=== PATIENT | female | born 1950 | race Caucasian/White ===

== ENCOUNTER 2022-07-03 11:26 | Inpatient (IN) ==
[2022-07-03 12:18] LABS: Hematocrit (blood only) 35.1 % (37.0-47.0); Mean Corpuscular Hemoglobin 31.4 pg (25.0-34.0); Mean Corpuscular Hgb Conc 34.2 g/dL (32.0-36.0); Mean Corpuscular Volume 91.9 fL (80.0-100.0); Mean Platelet Volume 12.1 fL (9.4-12.4); Platelet Count 149 K/uL (130-400); RDW Coefficient of Variation 11.9 % (11.5-14.5); RDW Standard Deviation 40.5 fL (36.4-46.3); Red Blood Count 3.82 M/uL (4.20-5.40); White Blood Count 6.35 K/ul (4.8-10.8)
[2022-07-03 12:36] LABS: Albumin Globulin Ratio 1.2 (0.9-2); Albumin Level 3.3 gm/dl (3.4-5.0); BUN Creatinine Ratio 21.7 (10-20); Bilirubin,Total 0.5 mg/dl (0.2-1.0); Calcium 8.9 mg/dl (8.6-10.3); Creatinine Clr Calc Pharmacy 55.2 ml/min; Est GFR (Non-African American) 53.5 ml/min; Globulin 2.7 gm/dl (2.5-4.0); Potassium 4.5 mmol/L (3.5-5.1); Troponin I High Sensitivity 6.7 pg/ml (0-14)
[2022-07-03 12:53] LABS: Partial Thromboplastin Time 27.9 Seconds (21.0-31.0); Prothrombin Time 10.6 Seconds (9.0-12.0)
--- NOTE | 2022-07-03 15:14 | Emergency Department Note ---
Impression & Plan Acute hyperglycemia ADMIT ED Provider Note HPI: The patient is a 71-year-old female with history of insulin-dependent diabetes, presents emergency department with a chief complaint of mid abdominal pain as well as nausea and vomiting and diarrhea that started earlier today. Patient states that she has had symptoms of generalized weakness throughout the week, she was seen at an outside hospital emergency room on Thursday and diagnosed with a urinary tract infection and placed on Macrobid. Patient states that she did have some nausea at that time that is worsened. Patient states today she had an episode of dark-colored emesis as well as an episode of dark-colored stools and therefore came to the ED to be assessed. Patient states she has some discomfort in her mid abdomen. On arrival to the ED the patient is otherwise hemodynamically stable, she is in no acute distress on my initial assessment. ROS: - Per HPI *Outpatient medications and allergy history reviewed. *Pertinent external medical records reviewed. PE: General: Alert HEENT: Normocephalic, trachea midline Eyes: Extraocular eye movement is intact, no scleral erythema Pulmonary: Clear to auscultation bilaterally, no wheezing Cardio: Regular rate and rhythm GI: Abdomen is soft to palpation, there is mild tenderness over the mid abdomen to palpation without guarding or rigidity : No suprapubic tenderness MSK: No evidence of trauma or malformation of the extremities, no edema Skin: No evidence of rash Neuro: Alert, no focal deficits Psychiatric: Cooperative library monitor: (As interpreted by myself): - An order was placed for continuous cardiac monitoring - Patient was noted to be in sinus rhythm with a rate of 80 EKG: (As interpreted by myself): Rate: 79 Rhythm: Normal sinus rhythm Intervals: Within normal limits ST changes: No ST elevation Time: 1140 Interventions provided in ED: -IV ceftriaxone, IV fluid bolus Differential Diagnosis: Acute upper GI tract hemorrhage, lower GI bleed, small bowel obstruction, acute cholecystitis, acute appendicitis, acute diverticulitis flare, ulcerative colitis/inflammatory bowel disease, diabetic ketoacidosis, urinary tract infection, pyelonephritis, amongst other potential pathologies. Medical Decision Making: Patient presented to the emergency department with some symptoms of nausea and vomiting, states she had some dark stool and dark emesis earlier today. Patient states that she has recently been treated for urinary tract infection with Macrobid for which she was seen at an ED earlier this week. On arrival here to the ED the patient is in no acute distress, she complains of generalized weakne ss as well as nausea. IV was established and lab work obtained, patient was placed on monitoring and evaluation advisor, lab work shows no leukocytosis, hemoglobin is stable, platelet count within normal limits, CMP shows very mild evidence of diabetic ketoacidosis with blood glucose of 422, slight anion gap elevation at 12, bicarb is borderline low at 20. Patient does complain of nausea but overall appears very nontoxic on my exam. Patient was given IV fluid resuscitation for her hyperglycemia with plan for close reassessment on the hospitalist service following admission. Urinalysis does not show any convincing evidence of infection however CT imaging was obtained and does show concern for possible a sending urinary tract infection on the left side and possible pyelonephritis. Given that the patient has recently been on antibiotics for urinary tract infection blood cultures were ordered and patient was given a dose of ceftriaxone. On reassessment patient states that she would prefer admission as opposed to discharge given her generalized weakness and lab abnormalities that were discussed with the patient. I think this is reasonable. We will hold on insulin drip at this time and see how she responds to fluid resuscitation given that her bicarb is just borderline low at 20. Case was discussed with the on-call midlevel provider for [facility] Hospitalist service, Rain Carrizales, and patient was placed for admission in stable condition for further care. [facility] Disposition discussion held by myself with: Patient Diagnosis: 1. Hyperglycemia, acute 2. Metabolic acidosis 3. Pyelonephritis on CT 4. Hyponatremia, mild 5. Elevated procalcitonin Disposition: Admission Jaron Moyer DO Emergency Medicine Past Med/Surg History Medical History Depression Diabetes mellitus, type II Dyslipidemia History of eye cancer HTN (hypertension) Surgical History H/O section H/O: hysterectomy History of appendectomy Family History Other Breast cancer Diabetes Lung cancer Social History (Updated 07/03/22 @ 17:41 by Lorelei Iniguez PA-C) Smoking Status: Never smoker Hx Alcohol Use: No Hx Substance Use: No Preferred Language: [place] Feels Safe at Home: Yes Allergies Allergies Allergy/AdvReac Type Severity Reaction Status Date / Time No Known Allergies Allergy Verified 07/03/22 15:31 Home Meds Home Medications Medication Instructions Recorded Confirmed albuterol sulfate 90 mcg/actuation 2 inh inhalation Q4H PRN Shortness 07/03/22 0 07/03/22 aerosol inhaler Of Breath Or Wheezing aspirin 81 mg tablet,delayed 81 mg PO DAILY 07/03/22 07/03/22 release calcium carbonate 600 mg-vitamin 1 cap PO DAILY 07/03/22 07/03/22 D3 5 mcg (200 unit) capsule (Calcium 600 + D(3)) cyanocobalamin (vitamin B-12) 500 500 mcg PO DAILY 07/03/22 07/03/22 mcg tablet (Vitamin B-12) insulin aspart U-100 100 unit/mL 0 sliding scale dose subcut TIDM 07/03/22 07/03/22 (3 mL) subcutaneous pen (Novolog FlexPen U-100 Insulin aspart) insulin glargine 100 unit/mL (3 24 unit subcut HS 07/03/22 07/03/22 mL) subcutaneous pen (Basaglar KwikPen U-100 Insulin) losartan 100 mg tablet 100 mg PO DAILY 07/03/22 07/03/22 nitrofurantoin 100 mg PO BID 07/03/22 07/03/22 monohydrate/macrocrystals 100 mg capsule ondansetron 4 mg disintegrating 4 mg translingual Q8H PRN 07/03/22 07/03/22 tablet NAUSEA/VOMITING simvastatin 20 mg tablet 20 mg PO HS 07/03/22 07/03/22 Results & Data (ED) Vital Signs Vital Signs - 24 hr 07/03/22 11:32 07/03/22 15:07 07/03/22 15:15 Temperature 37 C Temperature Source Temporal Artery Scan Pulse Rate - Lying 80 Pulse Rate - Sitting 79 Pulse Rate - Standing 86 Pulse Rate 82 78 Pulse Rate [Apical] Pulse Rhythm Regular Regular Pulse Rhythm [Apical] Pulse Strength Normal Pulse Strength [Apical] Respiratory Rate 20 16 Respiratory Effort / Characteristics Non-Labored Spontaneous Respiratory Depth Normal Respiratory Pattern Regular Blood Pressure - Lying 149/64 H Blood Pressure - Sitting 164/70 H Blood Pressure- Standing 145/75 H Blood Pressure 128/77 Blood Pressure [Right Arm] Blood Pressure Mean 94 Blood Pressure Mean [Right Arm] Blood Pressure Position Sitting Blood Pressure Position [Right Arm] Pulse Oximetry 97 99 Oxygen Delivery Method Room Air Room Air Sepsis Recent Fever Within 48 Hours No Sepsis New/Unexplained Change in Mental Status No Sepsis Action Taken by Nursing No Action Required 07/03/22 15:16 Temperature Temperature Source Pulse Rate - Lying Pulse Rate - Sitting Pulse Rate - Standing Pulse Rate Pulse Rate [Apical] 76 Pulse Rhythm Pulse Rhythm [Apical] Regular Pulse Strength Pulse Strength [Apical] Normal Respiratory Rate 16 Respiratory Effort / Characteristics Non-Labored Spontaneous Respiratory Depth Normal Respiratory Pattern Regular Blood Pressure - Lying Blood Pressure - Sitting Blood Pressure- Standing Blood Pressure Blood Pressure [Right Arm] 144/72 H Blood Pressure Mean Blood Pressure Mean [Right Arm] 96 Blood Pressure Position Blood Pressure Position [Right Arm] Semi-fowlers Pulse Oximetry 97 Oxygen Delivery Method Room Air Sepsis Recent Fever Within 48 Hours Sepsis New/Unexplained Change in Mental Status Sepsis Action Taken by Nursing Laboratory Data 07/03/22 11:39 07/03/22 11:39 Lab Results 07/03/22 07/03/22 07/03/22 Range/Units 11:39 11:39 11:39 WBC 6.35 (4.8-10.8) K/ul RBC 3.82 L (4.20-5.40) M/uL Hgb 12.0 (12.0-16.0) g/dl Hct 35.1 L (37.0-47.0) % MCV 91.9 (80.0-100.0) fL MCH 31.4 (25.0-34.0) pg MCHC 34.2 (32.0-36.0) g/dL RDW Std Deviation 40.5 (36.4-46.3) fL RDW Coeff of Dav 11.9 (11.5-14.5) % Plt Count 149 (130-400) K/uL MPV 12.1 (9.4-12.4) fL PT 10.6 (9.0-12.0) Seconds INR 1.0 (0.9-1.1) APTT 27.9 (21.0-31.0) Seconds PTT Ratio 1.0 Sodium 131 L (136-145) mmol/L Potassium 4.5 (3.5-5.1) mmol/L Chloride 99 (98-107) mmol/L Carbon Dioxide 20 L (21-32) mmol/L Anion Gap 12 H (3-11) BUN 23 (6-23) mg/dl Creatinine 1.06 (0.6-1.2) mg/dl Est Cr Clr Drug Dosing 55.2 ml/min Est GFR ( Amer) 62.0 ml/min Est GFR (Non-Af Amer) 53.5 ml/min BUN/Creatinine Ratio 21.7 H (10-20) Glucose 422 H* (70-99(Fasting)) mg/dl Calcium 8.9 (8.6-10.3) mg/dl Total Bilirubin 0.5 (0.2-1.0) mg/dl AST 16 (13-39) U/L ALT 13 (7-52) U/L Alkaline Phosphatase 59 (34-104) U/L Troponin I High Sens 6.7 (0-14) pg/ml Total Protein 6.0 (6.0-8.3) gm/dl Albumin 3.3 L (3.4-5.0) gm/dl Globulin 2.7 (2.5-4.0) gm/dl Albumin/Globulin Ratio 1.2 (0.9-2) Procalcitonin (0-0.5) ng/ml Urine Color Urine Appearance (Clear) Urine pH (4.5-7.5) Ur Specific [place] (1.000-1.030) Urine Protein (Negative) Urine Glucose (UA) (Negative) Urine Ketones (Negative) Urine Blood (Negative) Urine Nitrite (Negative) Urine Bilirubin (Negative) Urine Urobilinogen (Negative) Ur Leukocyte Esterase (Negative) Urine WBC (Auto) (0-5) /hpf Urine RBC (Auto) (0-4) /hpf U Hyaline Cast (Auto) (0-5) /lpf U Epithel Cells (Auto) (0-5) /lpf Urine Bacteria (Auto) (Negative) SARS-CoV-2, RNA, NAAT (NEGATIVE) Blood Type Antibody Screen 07/03/22 07/03/22 07/03/22 Range/Units 12:18 17:06 17:09 WBC (4.8-10.8) K/ul RBC (4.20-5.40) M/uL Hgb (12.0-16.0) g/dl Hct (37.0-47.0) % MCV (80.0-100.0) fL MCH (25.0-34.0) pg MCHC (32.0-36.0) g/dL RDW Std Deviation (36.4-46.3) fL RDW Coeff of Dav (11.5-14.5) % Plt Count (130-400) K/uL MPV (9.4-12.4) fL PT (9.0-12.0) Seconds INR (0.9-1.1) APTT (21.0-31.0) Seconds PTT Ratio Sodium (136-145) mmol/L Potassium (3.5-5.1) mmol/L Chloride (98-107) mmol/L Carbon Dioxide (21-32) mmol/L Anion Gap (3-11) BUN (6-23) mg/dl Creatinine (0.6-1.2) mg/dl Est Cr Clr Drug Dosing ml/min Est GFR ( Amer) ml/min Est GFR (Non-Af Amer) ml/min BUN/Creatinine Ratio (10-20) Glucose (70-99(Fasting)) mg/dl Calcium (8.6-10.3) mg/dl Total Bilirubin (0.2-1.0) mg/dl AST (13-39) U/L ALT (7-52) U/L Alkaline Phosphatase (34-104) U/L Troponin I High Sens (0-14) pg/ml Total Protein (6.0-8.3) gm/dl Albumin (3.4-5.0) gm/dl Globulin (2.5-4.0) gm/dl Albumin/Globulin Ratio (0.9-2) Procalcitonin 110.71 H (0-0.5) ng/ml Urine Color Yellow Urine Appearance Cloudy A (Clear) Urine pH 5.5 (4.5-7.5) Ur Specific [place] > 1.045 H (1.000-1.030) Urine Protein Trace H (Negative) Urine Glucose (UA) 3+ H (Negative) Urine Ketones 4+ H (Negative) Urine Blood 3+ H (Negative) Urine Nitrite Negative (Negative) Urine Bilirubin Negative (Negative) Urine Urobilinogen Negative (Negative) Ur Leukocyte Esterase Negative (Negative) Urine WBC (Auto) 1-5 (0-5) /hpf Urine RBC (Auto) 10-30 H (0-4) /hpf U Hyaline Cast (Auto) 1-5 (0-5) /lpf U Epithel Cells (Auto) 5-10 H (0-5) /lpf Urine Bacteria (Auto) Negative (Negative) SARS-CoV-2, RNA, NAAT (NEGATIVE) Blood Type AB Positive Antibody Screen NEGATIVE 07/03/22 Range/Units 17:45 WBC (4.8-10.8) K/ul RBC (4.20-5.40) M/uL Hgb (12.0-16.0) g/dl Hct (37.0-47.0) % MCV (80.0-100.0) fL MCH (25.0-34.0) pg MCHC (32.0-36.0) g/dL RDW Std Deviation (36.4-46.3) fL RDW Coeff of Dav (11.5-14.5) % Plt Count (130-400) K/uL MPV (9.4-12.4) fL PT (9.0-12.0) Seconds INR (0.9-1.1) APTT (21.0-31.0) Seconds PTT Ratio Sodium (136-145) mmol/L Potassium (3.5-5.1) mmol/L Chloride (98-107) mmol/L Carbon Dioxide (21-32) mmol/L Anion Gap (3-11) BUN (6-23) mg/dl Creatinine (0.6-1.2) mg/dl Est Cr Clr Drug Dosing ml/min Est GFR ( Amer) ml/min Est GFR (Non-Af Amer) ml/min BUN/Creatinine Ratio (10-20) Glucose (70-99(Fasting)) mg/dl Calcium (8.6-10.3) mg/dl Total Bilirubin (0.2-1.0) mg/dl AST (13-39) U/L ALT (7-52) U/L Alkaline Phosphatase (34-104) U/L Troponin I High Sens (0-14) pg/ml Total Protein (6.0-8.3) gm/dl Albumin (3.4-5.0) gm/dl Globulin (2.5-4.0) gm/dl Albumin/Globulin Ratio (0.9-2) Procalcitonin (0-0.5) ng/ml Urine Color Urine Appearance (Clear) Urine pH (4.5-7.5) Ur Specific [place] (1.000-1.030) Urine Protein (Negative) Urine Glucose (UA) (Negative) Urine Ketones (Negative) Urine Blood (Negative) Urine Nitrite (Negative) Urine Bilirubin (Negative) Urine Urobilinogen (Negative) Ur Leukocyte Esterase (Negative) Urine WBC (Auto) (0-5) /hpf Urine RBC (Auto) (0-4) /hpf U Hyaline Cast (Auto) (0-5) /lpf U Epithel Cells (Auto) (0-5) /lpf Urine Bacteria (Auto) (Negative) SARS-CoV-2, RNA, NAAT NEGATIVE (NEGATIVE) Blood Type Antibody Screen Administered Medications Discontinued Medications Sodium Chloride (Nss 1000ml) 1,000 mls @ 999 mls/hr IV .Q1H1M ONE Stop: 07/03/22 17:52 Last Admin: 07/03/22 17:20 Dose: 999 mls/hr Documented By: ROVING CHANGER Ceftriaxone Sodium 1,000 mg/ (Dextrose) 50 mls @ 100 mls/hr IV NOW STA Stop: 07/03/22 17:21 Last Admin: 07/03/22 17:22 Dose: 100 mls/hr Documented By: ROVING CHANGER Ioversol (Optiray 320 100ml) 83 ml IV ONCE ONE Stop: 07/03/22 15:36 Last Admin: 07/03/22 15:35 Dose: 83 ml Documented By: POPPY Imaging Data Radiologist's Impression: Abdomen/Pelvis CT 07/03/22 15:12 CT SCAN OF THE ABDOMEN AND PELVIS WITH IV CONTRAST CLINICAL HISTORY: Mid abdominal pain. Nausea and vomiting. Diarrhea. COMPARISON STUDY: No priors. TECHNIQUE: Following the IV administration of 83 cc of Optiray 320, CT scan of the abdomen and pelvis is performed from the lung bases to the proximal femora. Images are reviewed in the axial, sagittal, and coronal planes. IV contrast was administered without complication. A dose lowering technique was utilized adhering to the principles of ALARA. CT DOSE: 564.72 mGy.cm FINDINGS: Lung bases: The heart is normal in size and without pericardial effusion. The coronary arteries are densely calcified. There is elevation of the right hemidiaphragm with mild bibasilar atelectasis. The lung bases are otherwise clear. There is a small hiatal hernia. The distal esophagus is thick-walled. Liver: The contrast-enhanced liver is normal in size, contour, and attenuation. There is no intrahepatic biliary ductal dilatation. The hepatic veins and portal veins are patent. Scattered subcentimeter hepatic hypodensities likely represent cysts but are too small for definitive characterization. Gallbladder: Unremarkable. Spleen: Normal in size and attenuation. Pancreas: Moderately atrophic and grossly unremarkable. Adrenal glands: Unremarkable. Kidneys: The contrast enhanced kidneys demonstrate cortical atrophy and are without hydronephrosis. Enhancement of the left kidney is slightly heterogeneous as compared to the right. Urothelial thickening and enhancement is seen within the left renal pelvis and there is significant left-sided perinephric stranding. Bilateral renal cysts measuring up to 3.4 cm. Abdominal vasculature: The abdominal aorta is normal in course and caliber. Bowel: There is moderate colonic diverticulosis as well as diverticulosis of the distal small bowel. There is no CT evidence of acute diverticulitis. No bowel obstruction is seen. Residual enteric contrast is suggested in the colon. The cecum is located in the right upper quadrant. A duodenal diverticulum is incidentally noted. The appendix is not visualized. Peritoneum: There is no intraperitoneal free air or abdominal ascites. Lymphadenopathy: None. Pelvic viscera: The bladder is decompressed. The wall appears thickened and there is surrounding inflammation. The uterus is surgically absent. No adnexal lesion is seen. Skeletal structures: The skeletal structures are osteopenic. There is mild lumbosacral spondylosis. No lytic or blastic lesions are seen. IMPRESSION: 1. Findings suggest cystitis. Correlate with clinical findings and urinalysis. 2. There is urothelial thickening and enhancement in the left renal pelvis with significant left-sided perinephric stranding. Ascending infection/pyelonephritis is favored. Again, correlate with clinical findings and urinalysis. 3. Diverticulosis of the colon and distal small bowel without CT evidence of acute diverticulitis. 4. The esophagus appears circumferentially thick walled. Correlate clinically from some esophagitis. This can be further assessed with endoscopy if clinically warranted. 5. Additional findings as above. ACT 112: Negative or not required by law. Electronically signed by: Hung Patrick M.D. 07/03/2022 4:01 PM Discharge Plan Visit Data Chief Complaint: GI Assessment Stated Complaint: DIARRHEA (BLACK), VOMITING BILE, UTI ED Provider: Jaron Moyer Discharge Problem: Acute hyperglycemia Forms Stand Alone Forms: [facility] Prescriptions Prescriptions: No Action aspirin 81 mg Tablet,Delayed Release (Dr/Ec) 81 mg PO DAILY cyanocobalamin (vitamin B-12) [Vitamin B-12] 500 mcg Tablet 500 mcg PO DAILY simvastatin 20 mg tablet 20 mg PO HS ondansetron 4 mg tablet,disintegrating 4 mg translingual Q8H PRN (Reason: NAUSEA/VOMITING) losartan 100 mg tablet 100 mg PO DAILY insulin aspart U-100 [Novolog FlexPen U-100 Insulin] 100 unit/mL (3 mL) insulin pen 0 sliding scale dose SUBCUT TIDM nitrofurantoin monohyd/m-cryst 100 mg capsule 100 mg PO BID Rx Instructions: STARTED 07/01/22 FOR 7 DAYS Calcium 600 + D(3) 600 mg-5 mcg (200 unit) Capsule 1 cap PO DAILY insulin glargine [Basaglar KwikPen U-100 Insulin] 100 unit/mL (3 mL) insulin pen 24 unit SUBCUT HS albuterol sulfate 90 mcg/actuation HFA aerosol inhaler 2 inh INHALATION Q4H PRN (Reason: Shortness Of Breath Or Wheezing) Referrals Referrals: Ab Berger [Non-Staff] -
[2022-07-03] MEDS ORDERED: OPTIRAY 320 100ml IV ONE (15:35)
--- NOTE | 2022-07-03 16:02 | CT Scan Report ---
CT SCAN OF THE ABDOMEN AND PELVIS WITH IV CONTRAST CLINICAL HISTORY: Mid abdominal pain. Nausea and vomiting. Diarrhea. COMPARISON STUDY: No priors. TECHNIQUE: Following the IV administration of 83 cc of Optiray 320, CT scan of the abdomen and pelvi s is performed from the lung bases to the proximal femora. Images are reviewed in the axial, sagittal , and coronal planes. IV contrast was administered without complication. A dose lowering technique wa s utilized adhering to the principles of ALARA. CT DOSE: 564.72 mGy.cm FINDINGS: Lung bases: The heart is normal in size and without pericardial effusion. The coronary arteries are d ensely calcified. There is elevation of the right hemidiaphragm with mild bibasilar atelectasis. The lung bases are otherwise clear. There is a small hiatal hernia. The distal esophagus is thick-walled. Liver: The contrast-enhanced liver is normal in size, contour, and attenuation. There is no intrahepa tic biliary ductal dilatation. The hepatic veins and portal veins are patent. Scattered subcentimeter hepatic hypodensities likely represent cysts but are too small for definitive characterization. Gallbladder: Unremarkable. Spleen: Normal in size and attenuation. Pancreas: Moderately atrophic and grossly unremarkable. Adrenal glands: Unremarkable. Kidneys: The contrast enhanced kidneys demonstrate cortical atrophy and are without hydronephrosis. E nhancement of the left kidney is slightly heterogeneous as compared to the right. Urothelial thickeni ng and enhancement is seen within the left renal pelvis and there is significant left-sided perinephr ic stranding. Bilateral renal cysts measuring up to 3.4 cm. Abdominal vasculature: The abdominal aorta is normal in course and caliber. Bowel: There is moderate colonic diverticulosis as well as diverticulosis of the distal small bowel. There is no CT evidence of acute diverticulitis. No bowel obstruction is seen. Residual enteric contr ast is suggested in the colon. The cecum is located in the right upper quadrant. A duodenal diverticu lum is incidentally noted. The appendix is not visualized. Peritoneum: There is no intraperitoneal free air or abdominal ascites. Lymphadenopathy: None. Pelvic viscera: The bladder is decompressed. The wall appears thickened and there is surrounding infl ammation. The uterus is surgically absent. No adnexal lesion is seen. Skeletal structures: The skeletal structures are osteopenic. There is mild lumbosacral spondylosis. N o lytic or blastic lesions are seen. IMPRESSION: 1. Findings suggest cystitis. Correlate with clinical findings and urinalysis. 2. There is urothelial thickening and enhancement in the left renal pelvis with significant left-side d perinephric stranding. Ascending infection/pyelonephritis is favored. Again, correlate with clinica l findings and urinalysis. 3. Diverticulosis of the colon and distal small bowel without CT evidence of acute diverticulitis. 4. The esophagus appears circumferentially thick walled. Correlate clinically from some esophagitis. This can be further assessed with endoscopy if clinically warranted. 5. Additional findings as above. ACT 112: Negative or not required by law. Electronically signed by: Hung Patrick M.D. 07/03/2022 4:01 PM
[2022-07-03] MEDS ORDERED: SODIUM CHLORIDE 0.9% 1000ML 1,000 ML IV ONE ×2 (16:52→18:31)
[2022-07-03] MEDS ORDERED: cefTRIAXone SODIUM 1,000 MG in DEXTROSE 5% AD-VAN 50 ML IV STA ×2 (16:52→17:23)
--- NOTE | 2022-07-03 17:30 | History & Physical Report ---
Date of Service July 03, 2022 Assessment & Plan (1) Complicated UTI (urinary tract infection): Plan: This is a 71-year-old female with PMH of type 2 diabetes, dyslipidemia, hypertension, depression and other medical problems listed below who presents with abdominal pain as well as nausea 1 episode of vomiting earlier today was found to have complicated UTI. Diagnosed with UTI 3 days ago, has been taking Macrobid but symptoms have worsened Afebrile, no leukocytosis CT abd/pelvis with findings suggestive of cystitis with urothelial thickening and enhancement of left renal pelvis with significant left-sided perinephric stranding favoring a sending infection/pyelonephritis Started on Rocephin in ED, plan to continue Antiemetics PRN Follow urine culture (2) Hematemesis: (3) Nausea and vomiting: Plan: Endorsing episode of hematemesis and black stool x 1 earlier today, no recurrence Initial hgb 12 this morning - repeat H&H ordered for this evening Holding aspirin for now CT abd/pelvis with circumferentially thick walled esophagus. Correlate clinically from some esophagitis Procal elevated at 110. Will add lactate Describes abd discomfort as a fullness, feeling like she needs to belch, noted mainly in epigastric region Routine GI consult for further evaluation, possible EGD NPO after midnight (4) Hyperglycemia: (5) Metabolic acidosis: (6) Diabetes mellitus, type II: Plan: A1c 7.5 last month Glucose 422 this morning, is being given 1 L NSS now. Repeat BSG ordered Anion gap mildly elevated at 12 Keep NPO for now until BSG downtrending, basal bolus insulin regimen ordered Glycemic consult placed and discussed over phone BSG AC HS (7) HTN (hypertension): Plan: Continue losartan (8) Dyslipidemia: Plan: Continue statin (9) Depression: Plan: No longer taking Prozac DVT Ppx: SCDs in setting of possible GI bleed Code status: FULL PCP: [facility] Dispo: Admitted to PCU Patient seen in collaboration with Dr. Gustafson. Please see addendum. I spent a total of 75 minutes coordinating, documenting, and providing care for this patient excluding time spent in the performance of separately billed services. History of Present Illness Chief Complaint: abd pain, weakness Primary Care Provider: Henri Hart MD This is a 71-year-old female with PMH of type 2 diabetes, dyslipidemia, hypertension, depression and other medical problems listed below who presents with abdominal pain as well as nausea 1 episode of vomiting earlier today. Patient has had diffuse abdominal discomfort and generalized weakness for the past week and was seen at [place] [facility] on Thursday and diagnosed with a UTI. Was discharged home on Macrobid. Denies any dysuria but has been having incomplete emptying and frequent urination. Has had nausea all week but that has worsened over the past few days despite antibiotic. Earlier today, patient had 1 episode of dark-colored emesis she states was black as well as 1 episode of black- colored diarrhea. Came into the ER for further evaluation. Has not had a recurrent episode of dark vomit or stool since present in the ED. has abdominal discomfort that has been present all week and describes almost more of a full feeling like she needs to burp and not actual pain. Has had generalized weakness and lightheadedness this week as well. Denies any fever, chills, chest pain, shortness of breath or constipation. No recent medication changes other than the Macrobid antibiotic over the past few days. Has had decreased appetite but states she has been taking Lantus as prescribed. Allergies Allergy/AdvReac Type Severity Reaction Status Date / Time No Known Allergies Allergy Verified 07/03/22 15:31 Home Medications Medication Instructions Recorded Confirmed Type albuterol sulfate 90 mcg/actuation 2 inh inhalation Q4H PRN Shortness 07/03/22 07/03/22 History aerosol inhaler Of Breath Or Wheezing aspirin 81 mg tablet,delayed 81 mg PO DAILY 07/03/22 07/03/22 History release calcium carbonate 600 mg-vitamin 1 cap PO DAILY 07/03/22 07/03/22 History D3 5 mcg (200 unit) capsule (Calcium 600 + D(3)) cyanocobalamin (vitamin B-12) 500 500 mcg PO DAILY 07/03/22 07/03/22 History mcg tablet (Vitamin B-12) insulin aspart U-100 100 unit/mL 0 sliding scale dose subcut TIDM 07/03/22 07/03/22 History (3 mL) subcutaneous pen (Novolog FlexPen U-100 Insulin aspart) insulin glargine 100 unit/mL (3 24 unit subcut HS 07/03/22 07/03/22 History mL) subcutaneous pen (Basaglar KwikPen U-100 Insulin) losartan 100 mg tablet 100 mg PO DAILY 07/03/22 07/03/22 History nitrofurantoin 100 mg PO BID 07/03/22 07/03/22 History monohydrate/macrocrystals 100 mg capsule ondansetron 4 mg disintegrating 4 mg translingual Q8H PRN 07/03/22 07/03/22 History tablet NAUSEA/VOMITING simvastatin 20 mg tablet 20 mg PO HS 07/03/22 07/03/22 History Past Med/Surg History Medical History Depression Diabetes mellitus, type II Dyslipidemia History of eye cancer HTN (hypertension) Surgical History H/O section H/O: hysterectomy History of appendectomy Family History Other Breast cancer Diabetes Lung cancer Social History (Updated 07/03/22 @ 17:41 by Lorelei Iniguez PA-C) Smoking Status: Never smoker Hx Alcohol Use: No Hx Substance Use: No Preferred Language: Surinamese Feels Safe at Home: Yes Review of Systems Review of Systems: At least ten systems reviewed and negative except as noted in the HPI. Physical Exam Physical Exam: General Appearance: WD/WN, vitals as above, NAD, sitting up in bed, pleasant, conversing easily Head: normocephalic, atraumatic Eyes: normal inspection, PERRL, conjunctivae normal, anicteric sclerae ENT: external ear and nose normal, oropharynx normal Neck: normal visual inspection, trachea midline, no thyromegaly Respiratory: normal respiratory effort, lungs clear to auscultation, no wheeze, rales, rhonchi. No accessory muscle use Cardiovascular: regular rate, rhythm, no murmur, normal peripheral pulses, no BLE edema. Vessels: no JVD Chest: normal inspection of chest Abdomen/GI: normal bowel sounds, soft with mild TTP in epigastrium, no guarding, no hepatosplenomegaly : No flank pain or CVA TTP Extremities/Musculoskeletal: no cyanosis or clubbing, extremities motor strength 5/5 Neurologic: PERRL, EOMI, accommodation nl, no face palsy, no dysarthria, CN's II-XI intact bilaterally and moves all extremities Psychiatric: A+Ox3, euthymic affect Skin: no rashes, normal color, warm/dry Results & Data Results & Data Vital Signs (Past 12 Hours) Vital Signs Temp Pulse Pulse Resp BP BP Pulse Ox 07/03/22 15:16 76 16 144/72 H 97 07/03/22 15:15 78 16 99 07/03/22 11:32 37 C 82 20 128/77 97 O2 Del Method 07/03/22 15:16 Room Air 07/03/22 15:15 Room Air 07/03/22 11:32 Room Air Laboratory Results Short CBC 07/03/22 Range/Units 11:39 WBC 6.35 (4.8-10.8) K/ul Hgb 12.0 (12.0-16.0) g/dl Hct 35.1 L (37.0-47.0) % Plt Count 149 (130-400) K/uL BMP 07/03/22 11:39 Sodium 131 L Potassium 4.5 Chloride 99 Carbon Dioxide 20 L BUN 23 Creatinine 1.06 Glucose 422 H* Calcium 8.9 Liver Function 07/03/22 Range/Units 11:39 Total Bilirubin 0.5 (0.2-1.0) mg/dl AST 16 (13-39) U/L ALT 13 (7-52) U/L Alkaline Phosphatase 59 (34-104) U/L Albumin 3.3 L (3.4-5.0) gm/dl Diagnostic Findings Abdomen/Pelvis CT 07/03/22 15:12 CT SCAN OF THE ABDOMEN AND PELVIS WITH IV CONTRAST CLINICAL HISTORY: Mid abdominal pain. Nausea and vomiting. Diarrhea. COMPARISON STUDY: No priors. TECHNIQUE: Following the IV administration of 83 cc of Optiray 320, CT scan of the abdomen and pelvis is performed from the lung bases to the proximal femora. Images are reviewed in the axial, sagittal, and coronal planes. IV contrast was administered without complication. A dose lowering technique was utilized adhering to the principles of ALARA. CT DOSE: 564.72 mGy.cm FINDINGS: Lung bases: The heart is normal in size and without pericardial effusion. The coronary arteries are densely calcified. There is elevation of the right hemidiaphragm with mild bibasilar atelectasis. The lung bases are otherwise clear. There is a small hiatal hernia. The distal esophagus is thick-walled. Liver: The contrast-enhanced liver is normal in size, contour, and attenuation. There is no intrahepatic biliary ductal dilatation. The hepatic veins and portal veins are patent. Scattered subcentimeter hepatic hypodensities likely represent cysts but are too small for definitive characterization. Gallbladder: Unremarkable. Spleen: Normal in size and attenuation. Pancreas: Moderately atrophic and grossly unremarkable. Adrenal glands: Unremarkable. Kidneys: The contrast enhanced kidneys demonstrate cortical atrophy and are wi thout hydronephrosis. Enhancement of the left kidney is slightly heterogeneous as compared to the right. Urothelial thickening and enhancement is seen within the left renal pelvis and there is significant left-sided perinephric stranding. Bilateral renal cysts measuring up to 3.4 cm. Abdominal vasculature: The abdominal aorta is normal in course and caliber. Bowel: There is moderate colonic diverticulosis as well as diverticulosis of the distal small bowel. There is no CT evidence of acute diverticulitis. No bowel obstruction is seen. Residual enteric contrast is suggested in the colon. The cecum is located in the right upper quadrant. A duodenal diverticulum is incidentally noted. The appendix is not visualized. Peritoneum: There is no intraperitoneal free air or abdominal ascites. Lymphadenopathy: None. Pelvic viscera: The bladder is decompressed. The wall appears thickened and there is surrounding inflammation. The uterus is surgically absent. No adnexal lesion is seen. Skeletal structures: The skeletal structures are osteopenic. There is mild lumbosacral spondylosis. No lytic or blastic lesions are seen. IMPRESSION: 1. Findings suggest cystitis. Correlate with clinical findings and urinalysis. 2. There is urothelial thickening and enhancement in the left renal pelvis with significant left-sided perinephric stranding. Ascending infection/pyelonephritis is favored. Again, correlate with clinical findings and urinalysis. 3. Diverticulosis of the colon and distal small bowel without CT evidence of acute diverticulitis. 4. The esophagus appears circumferentially thick walled. Correlate clinically from some esophagitis. This can be further assessed with endoscopy if clinically warranted. 5. Additional findings as above. ACT 112: Negative or not required by law. Electronically signed by: Hung Patrick M.D. 07/03/2022 4:01 PM Supervising Physician Co-Signing Physician Notes Pt seen and examined by myself, Damari Gustafson MD on the day of service. Care was coordinated with Lorelei Iniguez PA-C. Please refer to her note for additional information. 71yo female with cystitis and episodes of black emesis and stools. AAOx3, comfortable on exam, no acute distress. CT abd/pelvis with noted cystitis and esophagitis, advising endoscopy f/u. Denies Hx of GERD or chronic NSAID use. Pt NPO, trend H/H, Protonix, GI consult. Treated for a UTI with macrobid before arrival, continue rocephin. Otherwise as above.
[2022-07-03 17:49] LABS: Appearance Urine Cloudy (Clear); Bacteria Urine Automated Negative (Negative); Bilirubin Urine Negative (Negative); Blood Urine 3+ (Negative); Color Urine Yellow; Glucose Urine UA 3+ (Negative); Ketones Urine 4+ (Negative); Leukocyte Esterase Urine Negative (Negative); Nitrite Urine Negative (Negative); Protein Urine Trace (Negative); Specific Gravity Urine > 1.045 (1.000-1.030); Urobilinogen Urine Negative (Negative); pH Urine 5.5 (4.5-7.5)
[2022-07-03] MEDS ORDERED: ALBUTEROL HFA 8 GM INHALER INH PRN (18:05)
[2022-07-03] MEDS ORDERED: CARBOHYDRATES FOR HYPOGLYCEMIA PO PRN (18:06)
[2022-07-03] MEDS ORDERED: GLUCOSE 10 TAB/TUBE PO PRN (18:06)
[2022-07-03] MEDS ORDERED: DEXTROSE 50% 50 ML SYRINGE IV PRN (18:06)
[2022-07-03] MEDS ORDERED: GLUCAGON FOR INJ 1 MG VIAL SQ PRN (18:06)
[2022-07-03] MEDS ORDERED: PHARMACY GLYCEMIC MGMT CONSULT PRN (18:06)
[2022-07-03] MEDS ORDERED: GLUCOSE 40% GEL 15 GM TUBE PO PRN (18:06)
[2022-07-03] MEDS ORDERED: PANTOprazole 80 MG in DEXTROSE 5% 100 ML IV ONE (18:27)
[2022-07-03] MEDS ORDERED: PANTOPRAZOLE BOLUS/DRIP 1 EACH IV STA (18:27)
[2022-07-03] MEDS ORDERED: SODIUM CHLORIDE 0.9% 1000ML 1,000 ML IV SCH (18:30)
[2022-07-03] MEDS ORDERED: INSULIN ASPART PER UNIT CHARGE ONE (18:51)
[2022-07-03] MEDS ORDERED: ACETAMINOPHEN 325 MG TAB PO PRN (19:00)
[2022-07-03] MEDS ORDERED: ONDANSETRON INJ 2 MG/ML 2 ML VIAL IV PRN (19:00)
[2022-07-03] MEDS ORDERED: POLYETHYLENE (MIRALAX) 17 GM PACK PO PRN (19:00)
[2022-07-03] MEDS: PANTOprazole 40 MG in DEXTROSE 5% 100 ML IV SCH (19:05)
[2022-07-03 19:36] LABS: Hematocrit (blood only) 31.6 % (37.0-47.0); Hemoglobin 10.4 g/dl (12.0-16.0)
[2022-07-03] MEDS: LANTUS PER UNIT CHARGE SQ SCH (20:26)
[2022-07-03] MEDS: SIMVASTATIN 20 MG TAB PO SCH (20:28)
[2022-07-03] MEDS ORDERED: INSULIN ASPART PER UNIT CHARGE SC SCH (21:00)
[2022-07-03 21:24] LABS: BUN Creatinine Ratio 25.3 (10-20); Creatinine Clr Calc Pharmacy 64.3 ml/min; Est GFR (African American) 74.6 ml/min; Est GFR (Non-African American) 64.4 ml/min; Potassium 4.7 mmol/L (3.5-5.1)
[2022-07-03] MEDS ORDERED: INSULIN ASPART PER UNIT CHARGE SC ONE (22:30)
[2022-07-04] MEDS ORDERED: INSULIN ASPART PER UNIT CHARGE SC SCH
[2022-07-04] MEDS: PANTOprazole 40 MG in DEXTROSE 5% 100 ML IV SCH ×4 (00:07→14:42)
[2022-07-04] MEDS: INSULIN ASPART PER UNIT CHARGE SC SCH ×5 (02:44→20:57)
[2022-07-04 07:18] LABS: Hematocrit (blood only) 32.1 % (37.0-47.0); Hemoglobin 10.7 g/dl (12.0-16.0); Mean Corpuscular Hemoglobin 31.1 pg (25.0-34.0); Mean Corpuscular Hgb Conc 33.3 g/dL (32.0-36.0); Mean Corpuscular Volume 93.3 fL (80.0-100.0); Mean Platelet Volume 11.8 fL (9.4-12.4); Platelet Count 147 K/uL (130-400); RDW Coefficient of Variation 12.2 % (11.5-14.5); RDW Standard Deviation 41.5 fL (36.4-46.3); Red Blood Count 3.44 M/uL (4.20-5.40)
[2022-07-04 07:28] LABS: BUN Creatinine Ratio 21.3 (10-20); Calcium 7.9 mg/dl (8.6-10.3); Creatinine Clr Calc Pharmacy 72.3 ml/min; Est GFR (African American) 87.2 ml/min; Est GFR (Non-African American) 75.2 ml/min; Potassium 4.2 mmol/L (3.5-5.1)
--- NOTE | 2022-07-04 09:14 | Gastrointestinal Consultation ---
Supervising physician's note: I interviewed and examined the patient, reviewed the medical records and discussed with MAITE Terry Subjective: Admitted with UTI, had emesis of black liquid followed by black stools. Minimal complaints heartburn. CT shows thickened distal esophagus. PEx: She looks well Abd-soft, nontender, BS normal I agree with the assessment and plan of care as outlined by Justine Brown. She has hematemesis and an abnormal CT. She needs EGD. Will plan for today. As the supervising physician, I have spent 20 minutes of discrete time performing the activities of this consultation which include but are not limited to, review of the medical record, obtaining a history, physical examination and entering information into the medical record. Date of Consultation July 04, 2022 Assessment & Plan (1) Hematemesis: Hematemesis: The patient endorses 1 episode of hematemesis Thursday as well as 1 melanotic diarrhea stool . Concern from CT of her abdomen and pelvis for esophagitis due to circumferentially thick-walled esophagus. Patient is n.p.o. She is on a Protonix drip. At home is on 81 mg aspirin which is on hold while inpatient. She has not been on PPI prior to admission. Proceed today with EGD. Procedure and risks explained to patient which include but not limited to medication reaction, bleeding, perforation, aspiration, and missed lesions. Verbalizes understanding and is agreeable to proceed. Case reviewed with Dr. Buck. Please refer to supervising physician addendum for further recommendations. I have spent 30 minutes of discrete time performing the activities of this visit which include but are not limited to review of the medical record, obtaining a history, physical exam, and entering information in the electronic record. History of Present Illness Attending Physician: Timmy Mares MD History of Present Illness The patient is a pleasant 71-year-old female who presented to the emergency department with complaints of mid abdominal pain, nausea, vomiting, diarrhea. She was subsequently admitted with concerns for upper GI bleed due to hematemesis and melanotic stool. She reports she began having chills and shivers Thursday. Was seen at [facility] and diagnosed with UTI. She starts Thursday morning she vomited black contents. She then had diarrhea melanotic stool presented to the ER at [facility] and was subsequently admitted. She reports intermittent low-grade temperature of 99.9. She has had decreased appetite but has been trying to push fluids at home. Denies any dysphagia. She notes some intermittent heartburn/reflux and endorses use of Tums symptomatically. She is on 81 mg aspirin. Denies other NSAID use. 1 episode of vomiting as noted on Thursday. Denies nausea. Denies current abdominal pain. Reports last colonoscopy at [facility] in 2020. She is currently on Protonix drip. Allergies Allergy/AdvReac Type Severity Reaction Status Date / Time No Known Allergies Allergy Verified 07/03/22 15:31 Home Medications Medication Instructions Recorded Confirmed Type albuterol sulfate 90 mcg/actuation 2 inh inhalation Q4H PRN Shortness 07/03/22 07/03/22 History aerosol inhaler Of Breath Or Wheezing aspirin 81 mg tablet,delayed 81 mg PO DAILY 07/03/22 07/03/22 History release calcium carbonate 600 mg-vitamin 1 cap PO DAILY 07/03/22 07/03/22 History D3 5 mcg (200 unit) capsule (Calcium 600 + D(3)) cyanocobalamin (vitamin B-12) 500 500 mcg PO DAILY 07/03/22 07/03/22 History mcg tablet (Vitamin B-12) insulin aspart U-100 100 unit/mL 0 sliding scale dose subcut TIDM 07/03/22 07/03/22 History (3 mL) subcutaneous pen (Novolog FlexPen U-100 Insulin aspart) insulin glargine 100 unit/mL (3 24 unit subcut HS 07/03/22 07/03/22 History mL) subcutaneous pen (Basaglar KwikPen U-100 Insulin) losartan 100 mg tablet 100 mg PO DAILY 07/03/22 07/03/22 History nitrofurantoin 100 mg PO BID 07/03/22 07/03/22 History monohydrate/macrocrystals 100 mg capsule ondansetron 4 mg disintegrating 4 mg translingual Q8H PRN 07/03/22 07/03/22 History tablet NAUSEA/VOMITING simvastatin 20 mg tablet 20 mg PO HS 07/03/22 07/03/22 History Patient History Medical History Depression Diabetes mellitus, type II Dyslipidemia History of eye cancer HTN (hypertension) Surgical History H/O section H/O: hysterectomy History of appendectomy Family History Other Breast cancer Diabetes Lung cancer Social History (Updated 07/03/22 @ 17:41 by Lorelei Iniguez PA-C) Smoking Status: Never smoker Hx Alcohol Use: No Hx Substance Use: No Preferred Language: Tunisian Communication Ability: Effective Tree Wrapper Required: No Beliefs That Will Affect Care: None Current Living Situation: Spouse Other Information That Helps Us Care for You: No Feels Safe at Home: Yes Safety Concerns: Feels Safe At This Time Assistive Devices: Glasses Review of Systems Review of Systems: All systems reviewed & are unremarkable except as noted in Subjective Physical Exam Constitutional: WD/WN, vitals as above Cardiovascular: RRR, no murmur, no edema Gastrointestinal (Abdomen): normal bowel sounds, soft, nontender, no hepatosplenomegaly Results & Data Vital Signs (Past 12 Hours) Vital Signs Temp Pulse Pulse Resp BP Pulse Ox O2 Del Method 07/04/22 02:35 36.7 C 71 18 120/70 96 Room Air 07/03/22 23:40 73 07/03/22 21:35 77 07/03/22 23:40 36.9 C 76 18 110/61 94 Room Air 07/03/22 21:35 Room Air 07/03/22 21:35 36.9 C 77 18 137/71 99 Room Air Laboratory Results Laboratory Results - last 24 hr 07/03/22 07/03/22 07/03/22 11:39 11:39 11:39 WBC 6.35 RBC 3.82 L Hgb 12.0 Hct 35.1 L MCV 91.9 MCH 31.4 MCHC 34.2 RDW Std Deviation 40.5 RDW Coeff of Dav 11.9 Plt Count 149 MPV 12.1 PT 10.6 INR 1.0 APTT 27.9 PTT Ratio 1.0 Sodium 131 L Potassium 4.5 Chloride 99 Carbon Dioxide 20 L Anion Gap 12 H BUN 23 Creatinine 1.06 Est Cr Clr Drug Dosing 55.2 Est GFR ( Amer) 62.0 Est GFR (Non-Af Amer) 53.5 BUN/Creatinine Ratio 21.7 H Glucose 422 H* POC Glucose Estimat Average Glucose Hemoglobin A1c Lactate Calcium 8.9 Total Bilirubin 0.5 AST 16 ALT 13 Alkaline Phosphatase 59 Troponin I High Sens 6.7 Total Protein 6.0 Albumin 3.3 L Globulin 2.7 Albumin/Globulin Ratio 1.2 Procalcitonin Urine Color Urine Appearance Urine pH Ur Specific [place] Urine Protein Urine Glucose (UA) Urine Ketones Urine Blood Urine Nitrite Urine Bilirubin Urine Urobilinogen Ur Leukocyte Esterase Urine WBC (Auto) Urine RBC (Auto) U Hyaline Cast (Auto) U Epithel Cells (Auto) Urine Bacteria (Auto) SARS-CoV-2, RNA, NAAT Blood Type Antibody Screen 07/03/22 07/03/22 07/03/22 12:18 17:06 17:09 WBC RBC Hgb Hct MCV MCH MCHC RDW Std Deviation RDW Coeff of Dav Plt Count MPV PT INR APTT PTT Ratio Sodium Potassium Chloride Carbon Dioxide Anion Gap BUN Creatinine Est Cr Clr Drug Dosing Est GFR ( Amer) Est GFR (Non-Af Amer) BUN/Creatinine Ratio Glucose POC Glucose Estimat Average Glucose Hemoglobin A1c Lactate Calcium Total Bilirubin AST ALT Alkaline Phosphatase Troponin I High Sens Total Protein Albumin Globulin Albumin/Globulin Ratio Procalcitonin 110.71 H Urine Color Yellow Urine Appearance Cloudy A Urine pH 5.5 Ur Specific [place] > 1.045 H Urine Protein Trace H Urine Glucose (UA) 3+ H Urine Ketones 4+ H Urine Blood 3+ H Urine Nitrite Negative Urine Bilirubin Negative Urine Urobilinogen Negative Ur Leukocyte Esterase Negative Urine WBC (Auto) 1-5 Urine RBC (Auto) 10-30 H U Hyaline Cast (Auto) 1-5 U Epithel Cells (Auto) 5-10 H Urine Bacteria (Auto) Negative SARS-CoV-2, RNA, NAAT Blood Type AB Positive Antibody Screen NEGATIVE 07/03/22 07/03/22 07/03/22 17:45 18:31 19:15 WBC RBC Hgb 10.4 L Hct 31.6 L MCV MCH MCHC RDW Std Deviation RDW Coeff of Dav Plt Count MPV PT INR APTT PTT Ratio Sodium Potassium Chloride Carbon Dioxide Anion Gap BUN Creatinine Est Cr Clr Drug Dosing Est GFR ( Amer) Est GFR (Non-Af Amer) BUN/Creatinine Ratio Glucose POC Glucose 325 H* Estimat Average Glucose Hemoglobin A1c Lactate Calcium Total Bilirubin AST ALT Alkaline Phosphatase Troponin I High Sens Total Protein Albumin Globulin Albumin/Globulin Ratio Procalcitonin Urine Color Urine Appearance Urine pH Ur Specific [place] Urine Protein Urine Glucose (UA) Urine Ketones Urine Blood Urine Nitrite Urine Bilirubin Urine Urobilinogen Ur Leukocyte Esterase Urine WBC (Auto) Urine RBC (Auto) U Hyaline Cast (Auto) U Epithel Cells (Auto) Urine Bacteria (Auto) SARS-CoV-2, RNA, NAAT NEGATIVE Blood Type Antibody Screen 07/03/22 07/03/22 07/03/22 19:15 20:19 20:32 WBC RBC Hgb Hct MCV MCH MCHC RDW Std Deviation RDW Coeff of Dav Plt Count MPV PT INR APTT PTT Ratio Sodium 133 L Potassium 4.7 Chloride 105 Carbon Dioxide 14 L Anion Gap 14 H BUN 23 Creatinine 0.91 Est Cr Clr Drug Dosing 64.3 Est GFR ( Amer) 74.6 Est GFR (Non-Af Amer) 64.4 BUN/Creatinine Ratio 25.3 H Glucose 370 H* POC Glucose 364 H* Estimat Average Glucose Hemoglobin A1c Lactate 1.3 Calcium 8.0 L Total Bilirubin AST ALT Alkaline Phosphatase Troponin I High Sens Total Protein Albumin Globulin Albumin/Globulin Ratio Procalcitonin Urine Color Urine Appearance Urine pH Ur Specific [place] Urine Protein Urine Glucose (UA) Urine Ketones Urine Blood Urine Nitrite Urine Bilirubin Urine Urobilinogen Ur Leukocyte Esterase Urine WBC (Auto) Urine RBC (Auto) U Hyaline Cast (Auto) U Epithel Cells (Auto) Urine Bacteria (Auto) SARS-CoV-2, RNA, NAAT Blood Type Antibody Screen 07/03/22 07/04/22 07/04/22 21:41 02:37 05:53 WBC RBC Hgb Hct MCV MCH MCHC RDW Std Deviation RDW Coeff of Dav Plt Count MPV PT INR APTT PTT Ratio Sodium Potassium Chloride Carbon Dioxide Anion Gap BUN Creatinine Est Cr Clr Drug Dosing Est GFR ( Amer) Est GFR (Non-Af Amer) BUN/Creatinine Ratio Glucose POC Glucose 356 H* 295 H 126 H Estimat Average Glucose Hemoglobin A1c Lactate Calcium Total Bilirubin AST ALT Alkaline Phosphatase Troponin I High Sens Total Protein Albumin Globulin Albumin/Globulin Ratio Procalcitonin Urine Color Urine Appearance Urine pH Ur Specific [place] Urine Protein Urine Glucose (UA) Urine Ketones Urine Blood Urine Nitrite Urine Bilirubin Urine Urobilinogen Ur Leukocyte Esterase Urine WBC (Auto) Urine RBC (Auto) U Hyaline Cast (Auto) U Epithel Cells (Auto) Urine Bacteria (Auto) SARS-CoV-2, RNA, NAAT Blood Type Antibody Screen 07/04/22 07/04/22 07/04/22 06:30 06:30 06:30 WBC 6.60 RBC 3.44 L Hgb 10.7 L Hct 32.1 L MCV 93.3 MCH 31.1 MCHC 33.3 RDW Std Deviation 41.5 RDW Coeff of Dav 12.2 Plt Count 147 MPV 11.8 PT INR APTT PTT Ratio Sodium 137 Potassium 4.2 Chloride 110 H Carbon Dioxide 18 L Anion Gap 9 BUN 17 Creatinine 0.80 Est Cr Clr Drug Dosing 72.3 Est GFR ( Amer) 87.2 Est GFR (Non-Af Amer) 75.2 BUN/Creatinine Ratio 21.3 H Glucose 114 H POC Glucose Estimat Average Glucose Pending Hemoglobin A1c Pending Lactate Calcium 7.9 L Total Bilirubin AST ALT Alkaline Phosphatase Troponin I High Sens Total Protein Albumin Globulin Albumin/Globulin Ratio Procalcitonin Urine Color Urine Appearance Urine pH Ur Specific [place] Urine Protein Urine Glucose (UA) Urine Ketones Urine Blood Urine Nitrite Urine Bilirubin Urine Urobilinogen Ur Leukocyte Esterase Urine WBC (Auto) Urine RBC (Auto) U Hyaline Cast (Auto) U Epithel Cells (Auto) Urine Bacteria (Auto) SARS-CoV-2, RNA, NAAT Blood Type Antibody Screen Diagnostic Findings Abdomen/Pelvis CT 07/03/22 15:12 CT SCAN OF THE ABDOMEN AND PELVIS WITH IV CONTRAST CLINICAL HISTORY: Mid abdominal pain. Nausea and vomiting. Diarrhea. COMPARISON STUDY: No priors. TECHNIQUE: Following the IV administration of 83 cc of Optiray 320, CT scan of the abdomen and pelvis is performed from the lung bases to the proximal femora. Images are reviewed in the axial, sagittal, and coronal planes. IV contrast was administered without complication. A dose lowering technique was utilized adhering to the principles of ALARA. CT DOSE: 564.72 mGy.cm FINDINGS: Lung bases: The heart is normal in size and without pericardial effusion. The coronary arteries are densely calcified. There is elevation of the right hemidiaphragm with mild bibasilar atelectasis. The lung bases are otherwise clear. There is a small hiatal hernia. The distal esophagus is thick-walled. Liver: The contrast-enhanced liver is normal in size, contour, and attenuation. There is no intrahepatic biliary ductal dilatation. The hepatic veins and portal veins are patent. Scattered subcentimeter hepatic hypodensities likely represent cysts but are too small for definitive characterization. Gallbladder: Unremarkable. Spleen: Normal in size and attenuation. Pancreas: Moderately atrophic and grossly unremarkable. Adrenal glands: Unremarkable. Kidneys: The contrast enhanced kidneys demonstrate cortical atrophy and are without hydronephrosis. Enhancement of the left kidney is slightly heterogeneous as compared to the right. Urothelial thickening and enhancement is seen within the left renal pelvis and there is significant left-sided perinephric stranding. Bilateral renal cysts measuring up to 3.4 cm. Abdominal vasculature: The abdominal aorta is normal in course and caliber. Bowel: There is moderate colonic diverticulosis as well as diverticulosis of the distal small bowel. There is no CT evidence of acute diverticulitis. No bowel obstruction is seen. Residual enteric contrast is suggested in the colon. The cecum is located in the right upper quadrant. A duodenal diverticulum is incidentally noted. The appendix is not visualized. Peritoneum: There is no intraperitoneal free air or abdominal ascites. Lymphadenopathy: None. Pelvic viscera: The bladder is decompressed. The wall appears thickened and there is surrounding inflammation. The uterus is surgically absent. No adnexal lesion is seen. Skeletal structures: The skeletal structures are osteopenic. There is mild lumbosacral spondylosis. No lytic or blastic lesions are seen. IMPRESSION: 1. Findings suggest cystitis. Correlate with clinical findings and urinalysis. 2. There is urothelial thickening and enhancement in the left renal pelvis with significant left-sided perinephric stranding. Ascending infection/pyelonephritis is favored. Again, correlate with clinical findings and urinalysis. 3. Diverticulosis of the colon and distal small bowel without CT evidence of acute diverticulitis. 4. The esophagus appears circumferentially thick walled. Correlate clinically from some esophagitis. This can be further assessed with endoscopy if clinically warranted. 5. Additional findings as above. ACT 112: Negative or not required by law. Electronically signed by: Hung Patrick M.D. 07/03/2022 4:01 PM
[2022-07-04] MEDS: LANTUS PER UNIT CHARGE SQ SCH (09:20)
[2022-07-04 10:20] LABS: Estimated Average Glucose 180 mg/dl; Hemoglobin A1C 7.9 % (4.5-5.6)
[2022-07-04] MEDS: LOSARTAN POTASSIUM 50 MG TAB PO SCH (10:40)
[2022-07-04] MEDS: CALCIUM 600MG + VIT D 400 IU TAB PO SCH (10:41)
[2022-07-04] MEDS: CYANOCOBALAMIN (B-12) 500 MCG TABLET PO SCH (10:41)
--- NOTE | 2022-07-04 12:51 | History & Physical Report ---
Date of Service July 04, 2022 Assessment & Plan (1) Hematemesis: Plan: Pleasant woman with hematemesis who needs EGD. Procedure and risks discussed. She agrees. Admission and Anticipated Discharge Date Admission Date: July 03, 2022 History of Present Illness Chief Complaint: hematemesis Primary Care Provider: Henri Hart MD 71 year old female admitted with UTI who had some hematemesis. CT showed thickened distal esophagus. She is here for EGD Allergies Allergy/AdvReac Type Severity Reaction Status Date / Time No Known Allergies Allergy Verified 07/03/22 15:31 Home Medications Medication Instructions Recorded Confirmed Type albuterol sulfate 90 mcg/actuation 2 inh inhalation Q4H PRN Shortness 07/03/22 07/03/22 History aerosol inhaler Of Breath Or Wheezing aspirin 81 mg tablet,delayed 81 mg PO DAILY 07/03/22 07/03/22 History release calcium carbonate 600 mg-vitamin 1 cap PO DAILY 07/03/22 07/03/22 History D3 5 mcg (200 unit) capsule (Calcium 600 + D(3)) cyanocobalamin (vitamin B-12) 500 500 mcg PO DAILY 07/03/22 07/03/22 History mcg tablet (Vitamin B-12) insulin aspart U-100 100 unit/mL 0 sliding scale dose subcut TIDM 07/03/22 07/03/22 History (3 mL) subcutaneous pen (Novolog FlexPen U-100 Insulin aspart) insulin glargine 100 unit/mL (3 24 unit subcut HS 07/03/22 07/03/22 History mL) subcutaneous pen (Basaglar KwikPen U-100 Insulin) losartan 100 mg tablet 100 mg PO DAILY 07/03/22 07/03/22 History nitrofurantoin 100 mg PO BID 07/03/22 07/03/22 History monohydrate/macrocrystals 100 mg capsule ondansetron 4 mg disintegrating 4 mg translingual Q8H PRN 07/03/22 07/03/22 History tablet NAUSEA/VOMITING simvastatin 20 mg tablet 20 mg PO HS 07/03/22 07/03/22 History Past Med/Surg History Medical History Depression Diabetes mellitus, type II Dyslipidemia History of eye cancer HTN (hypertension) Surgical History H/O section H/O: hysterectomy History of appendectomy Family History Other Breast cancer Diabetes Lung cancer Social History Smoking Status: Never smoker Hx Alcohol Use: No Hx Substance Use: No Preferred Language: Slovak Communication Ability: Effective [place]aster[place] Required: No Beliefs That Will Affect Care: None Current Living Situation: Spouse Other Information That Helps Us Care for You: No Feels Safe at Home: Yes Safety Concerns: Feels Safe At This Time Assistive Devices: None Review of Systems All systems reviewed & are unremarkable except as noted in HPI & below ASA Classification ASA ASA2 Results & Data Vital Signs (Past 12 Hours) Vital Signs Temp Pulse Resp BP Pulse Ox O2 Del Method 07/04/22 11:54 36.8 C 68 16 128/69 95 Room Air 07/04/22 08:36 36.7 C 67 16 116/73 98 Room Air 07/04/22 02:35 36.7 C 71 18 120/70 96 Room Air Code Status & VTE Plan VTE Prophylaxis Plan VTE Prophylaxis will be ordered: Yes
--- NOTE | 2022-07-04 12:57 | Anesthesiology Consultation ---
Date of Service July 04, 2022 Assessment & Plan Chart Review Chart Review: Acceptable Risk for Surgery and Patient NOT seen in Pre Admission Testing Consults Requested none ASA ASA3 Proposed Anesthesia Anesthesia Type: MAC Risk / Benefits Reviewed With: PT / POA / Parent / Guardian, Accepts Plan and Informed Consent Obtained History Surgery Operation Date: 07/04/22 17:30 Proposed Procedures p Esophagogastroduodenoscopy Dr. Cielo Buck Jr, MD Height/Weight Height: 5 ft 7 in Weight: 80.2 kg Allergies Allergy/AdvReac Type Severity Reaction Status Date / Time No Known Allergies Allergy Verified 07/03/22 15:31 Medications Home Medications Medication Instructions Recorded Confirmed Last Taken albuterol sulfate 90 mcg/actuation 2 inh inhalation Q4H PRN Shortness 07/03/22 07/03/22 Unknown aerosol inhaler Of Breath Or Wheezing aspirin 81 mg tablet,delayed 81 mg PO DAILY 07/03/22 07/03/22 07/03/22 release calcium carbonate 600 mg-vitamin 1 cap PO DAILY 07/03/22 07/03/22 07/03/22 D3 5 mcg (200 unit) capsule (Calcium 600 + D(3)) cyanocobalamin (vitamin B-12) 500 500 mcg PO DAILY 07/03/22 07/03/22 07/03/22 mcg tablet (Vitamin B-12) insulin aspart U-100 100 unit/mL 0 sliding scale dose subcut TIDM 07/03/22 07/03/22 07/03/22 08:00 (3 mL) subcutaneous pen (Novolog FlexPen U-100 Insulin aspart) insulin glargine 100 unit/mL (3 24 unit subcut HS 07/03/22 07/03/22 07/02/22 mL) subcutaneous pen (Basaglar KwikPen U-100 Insulin) losartan 100 mg tablet 100 mg PO DAILY 07/03/22 07/03/22 07/03/22 nitrofurantoin 100 mg PO BID 07/03/22 07/03/22 07/03/22 08:00 monohydrate/macrocrystals 100 mg capsule ondansetron 4 mg disintegrating 4 mg translingual Q8H PRN 07/03/22 07/03/22 Unknown tablet NAUSEA/VOMITING simvastatin 20 mg tablet 20 mg PO HS 07/03/22 07/03/22 07/03/22 Active Medications Generic Name Dose Route Start Last Admin Trade Name Pedro PRN Reason Stop Dose Admin Calcium/Vitamin D 1 tab 07/04/22 09:00 07/04/22 10:41 Calcium 600mg + Vit D 400 Iu Tab PO 08/03/22 08:59 1 tab DAILY RAJI Administration Cyanocobalamin 500 mcg 07/04/22 09:00 07/04/22 10:41 Cyanocobalamin (B-12) 500 Mcg Tablet PO 08/03/22 08:59 500 mcg DAILY RAJI Administration Pantoprazole Sodium 40 mg/ 100 mls @ 20 mls/hr 07/03/22 18:45 07/04/22 10:18 Dextrose IV 08/02/22 18:44 8 mg/hr Q5H RAJI 20 mls/hr Administration 8 MG/HR Insulin Aspart 0 units 07/04/22 02:00 07/04/22 12:24 Insulin Aspart Per Unit Charge SC 08/03/22 01:59 3 units Q6 RAJI Administration Losartan Potassium 100 mg 07/04/22 09:00 07/04/22 10:40 Losartan Potassium 50 Mg Tab PO 08/03/22 08:59 100 mg DAILY RAJI Administration Simvastatin 20 mg 07/03/22 21:00 07/03/22 20:28 Simvastatin 20 Mg Tab PO 08/02/22 20:59 20 mg HS RAJI Administration NPO Date Last Intake of Fluids: 07/02/22 Time Last Intake of Fluids: 21:00 Date Last Intake of Solids: 06/29/22 Time Last Intake of Solids: 17:00 Past Medical History Medical History Depression Diabetes mellitus, type II Dyslipidemia History of eye cancer HTN (hypertension) Exercise / Class Metabolic Activity II 4-5 Yardwork/Stairs/Walk up hill Past Family History Family History Other Breast cancer Diabetes Lung cancer Past Surgical History Surgical History H/O section H/O: hysterectomy History of appendectomy Past Anesthesia History No Hx of Anesthesia Complications and No Family Hx of Anesthesia Complications History of PONV No Hx of PONV and No Hx of Motion Sickness Social History Smoking Status: Never smoker Hx Alcohol Use: No Hx Substance Use: No Physical Exam Vital Signs Last Vital Signs Temp 37.2 C 07/04/22 12:48 Pulse 64 07/04/22 12:48 Resp 16 07/04/22 12:48 BP 141/69 H 07/04/22 12:48 Pulse Ox 94 07/04/22 12:48 O2 Del Method Room Air 07/04/22 12:48 Constitutional + obese; no acute distress ENMT Mouth: no dentition abnormality Thyromental Distance: < 3.5 Finger Breadths Mallampati Class: II Neck normal visual inspection and trachea midline; neck extension not limited Respiratory normal respiratory effort Auscultation: lungs clear to auscultation bilaterally Cardiovascular Rate/Rhythm: regular rate and regular rhythm Heart Sounds: no murmur Vessels: no carotid bruit Musculoskeletal Spine: normal cervical ROM and no pain with cervical ROM Extremities: full ROM of extremities Neurologic moves all extremities Motor/Sensory: no sensory deficit Psychiatric Orientation: alert and oriented x 3 Testing Laboratory Results 07/04/22 06:30 07/04/22 06:30 PT 10.6 Seconds (9.0-12.0) 07/03/22 11:39 INR 1.0 (0.9-1.1) 07/03/22 11:39 APTT 27.9 Seconds (21.0-31.0) 07/03/22 11:39 Hemoglobin A1c 7.9 % (4.5-5.6) H 07/04/22 06:30 Urine Color Yellow 07/03/22 17:06 Urine Appearance Cloudy (Clear) A 07/03/22 17:06 Urine pH 5.5 (4.5-7.5) 07/03/22 17:06 Ur Specific [place] > 1.045 (1.000-1.030) H 07/03/22 17:06 Urine Protein Trace (Negative) H 07/03/22 17:06 Urine Glucose (UA) 3+ (Negative) H 07/03/22 17:06 Urine Ketones 4+ (Negative) H 07/03/22 17:06 Urine Nitrite Negative (Negative) 07/03/22 17:06 Ur Leukocyte Esterase Negative (Negative) 07/03/22 17:06 Urine WBC (Auto) 1-5 /hpf (0-5) 07/03/22 17:06 Urine RBC (Auto) 10-30 /hpf (0-4) H 07/03/22 17:06 U Hyaline Cast (Auto) 1-5 /lpf (0-5) 07/03/22 17:06 U Epithel Cells (Auto) 5-10 /lpf (0-5) H 07/03/22 17:06 Urine Bacteria (Auto) Negative (Negative) 07/03/22 17:06 Blood Type AB Positive 07/03/22 12:18 Antibody Screen NEGATIVE 07/03/22 12:18 07/04/22 07/04/22 07/04/22 12:04 05:53 02:37 POC Glucose 185 H 126 H 295 H Electrocardiogram Date: 07/03/22 Findings: + NSR @ (@ 81;LAD;? anter. infarct,age ?)
[2022-07-04] MEDS ORDERED: ATROPINE SULFATE 0.1 MG/ML 10ML SYR IV PRN (13:01)
[2022-07-04] MEDS ORDERED: ePHEDrine sulfate 50 MG/ML AMP IV PRN (13:01)
--- NOTE | 2022-07-04 13:06 | Pharmacy Report ---
Pharmacy Glycemic Short Note 2 - Date of Service July 04, 2022 - Glycemic Short BSG Results (Last 24 hours): 07/03/22 07/03/22 07/03/22 18:31 20:19 20:32 Glucose 370 H* POC Glucose 325 H* 364 H* 07/03/22 07/04/22 07/04/22 21:41 02:37 05:53 Glucose POC Glucose 356 H* 295 H 126 H 07/04/22 07/04/22 06:30 12:04 Glucose 114 H POC Glucose 185 H OUTPATIENT ANTIDIABETIC REGIMEN: * Basaglar 24 units SC HS * Novolog SSI TIDM HbA1c: 7.5% (May 2022, per H&P) ASSESSMENT: * DC is a 71 year old female presented to [facility] ED on 07/03 with worsening abdominal pain in addition to N&V * Presenting BSG > 300 mg/dL - received 20 units of basal and 21 units of correctional bolus insulin * Protonix gtt (mixed in dextrose) currently infusing due to concern for upper GI bleed, hematemesis, and melanotic stool * NPO at this time - will order conservative basal scale this evening PLAN FOR INPATIENT GLYCEMIC CONTROL: * Basal insulin * Lantus 0-15 units SC HS * Bolus insulin * NovoLog per scale ACHS or Q6hrs while NPO * Goal Range: Low 110 mg/dL - High 140 mg/dL * Correction Factor: 20 mg/dL/unit * Nutritional / Prandial insulin per carb ratio of 1 unit per 7 grams CHO consumed
--- NOTE | 2022-07-04 13:12 | Post Operative Brief Note ---
Immediate Post Op Note v1 Date of Surgery July 04, 2022 Pre & Post Diagnosis Operation Date: 07/04/22 17:30 <No data on this cse meets the specified criteria> rectal bleeding, hemorrhoids I identified the patient and participated in the time-out.: Yes Procedure Operation Date: 07/04/22 17:30 <No data on this case meets the specified criteria> hemorrhoids, otherwise normal Surgeon Shasta Buck Jr, MD C D Stripper none Estimated Blood Loss 0 Findings Consistent with Post-Op Diagnosis hemorrhoids Anesthesia Type General Disposition Accompanied Patient To Recovery: No Disposition: Recovery Room Overlapping Procedure I was immediately available: during the entire case.
--- NOTE | 2022-07-04 13:31 | Post Operative Brief Note ---
Immediate Post Op Note v1 Date of Surgery July 04, 2022 Pre & Post Diagnosis Operation Date: 07/04/22 17:30 <No data on this case meets the specified criteria> hematemesis, esophagitis, duodenal ulcers I identified the patient and participated in the time-out.: Yes Procedure EGD Operation Date: 07/04/22 17:30 <No data on this case meets the specified criteria> Surgeon Shasta Buck Jr, MD Painter And Decorator none Estimated Blood Loss 0 Findings Consistent with Post-Op Diagnosis LA class D esophagitis, duodenal ulcers Anesthesia Type General Complications none Disposition Accompanied Patient To Recovery: No Disposition: Recovery Room Overlapping Procedure I was immediately available: during the entire case.
[2022-07-04] MEDS ORDERED: PROPOFOL IV EMULSION 10 MG/ML 20 ML VIAL IV ONE (13:33)
[2022-07-04] MEDS ORDERED: LIDOCAINE 2% 2 ML VIAL/AMP(20MG/ML) INFIL ONE (13:33)
--- NOTE | 2022-07-04 13:35 | GI REPORT ---
Patient Name: Marycruz White Procedure Date: 07/04/2022 1:22 PM Date of : 1950 Admit Type: Inpatient Age: 71 Gender: Female Attending MD: Shasta Buck MD, Procedure: Upper GI endoscopy Providers: Shasta Buck MD Referring MD: Henri Hart Indications: Hematemesis Medicines: Propofol per Anesthesia Complications: No immediate complications. Estimated Blood Loss: Estimated blood loss: none. Procedure: Pre-Anesthesia Assessment: - Prior to the procedure, a History and Physical was performed, and patient medications and allergies were reviewed. The patient's tolerance of previous anesthesia was also reviewed. The risks and benefits of the procedure and the sedation options and risks were discussed with the patient. All questions were answered, and informed consent was obtained. Prior Anticoagulants: The patient has taken no anticoagulant or antiplatelet agents. ASA Grade Assessment: II - A patient with mild systemic disease. After reviewing the risks and benefits, the patient was deemed in satisfactory condition to undergo the procedure. After obtaining informed consent, the endoscope was passed under direct vision. Throughout the procedure, the patient's blood pressure, pulse, and oxygen saturations were monitored continuously. The Endoscope was introduced through the mouth, and advanced to the second part of duodenum. The upper GI endoscopy was accomplished without difficulty. The patient tolerated the procedure well. Findings: LA Grade D (one or more mucosal breaks involving at least 75% of esophageal circumference) esophagitis with no bleeding was found in the lower third of the esophagus. A medium-sized hiatal hernia was present. The exam of the stomach was otherwise normal. Many non-bleeding superficial duodenal ulcers were found in the duodenal bulb and in the second portion of the duodenum. The largest lesion was 4 mm in largest dimension. Impression: - LA Grade D reflux esophagitis with no bleeding. - Medium-sized hiatal hernia. - Non-bleeding duodenal ulcers. - No specimens collected. Recommendation: - Patient has a contact number available for emergencies. The signs and symptoms of potential delayed complications were discussed with the patient. Return to normal activities tomorrow. Written discharge instructions were provided to the patient. - Resume previous diet. - Continue present medications. - Repeat upper endoscopy in 3 months to check healing. Shasta Buck MD 07/04/2022 1:35:10 PM Note Initiated On: 07/04/2022 1:22 PM Number of Addenda: 0 I attest to the content of the Intraoperative Record and orders documented therein, exceptions below {[id number]}
--- NOTE | 2022-07-04 13:52 | Anesthesiology Progress Note ---
Date of Service July 04, 2022 Anesthesia Post Procedure Vital Signs Vital Signs: Temp Pulse Pulse Resp BP Pulse Ox O2 Del Method 07/04/22 13:38 64 18 123/60 96 Room Air 07/04/22 12:48 37.2 C 64 16 141/69 H 94 Room Air 07/04/22 11:54 36.8 C 68 16 128/69 95 Room Air 07/04/22 08:36 36.7 C 67 16 116/73 98 Room Air 07/04/22 02:35 36.7 C 71 18 120/70 96 Room Air 07/03/22 23:40 73 07/03/22 21:35 77 07/03/22 23:40 36.9 C 76 18 110/61 94 Room Air 07/03/22 21:35 Room Air 07/03/22 21:35 36.9 C 77 18 137/71 99 Room Air 07/03/22 20:30 71 19 99 07/03/22 20:20 75 26 H 98 07/03/22 20:17 78 20 97 07/03/22 20:24 74 07/03/22 15:16 76 16 144/72 H 97 Room Air 07/03/22 15:15 78 16 99 Room Air Transfer of Care Handoff Completed per policy Notes Mental Status: alert / awake / arousable Patient Amnestic to Procedure: Yes Nausea / Vomiting: adequately controlled Pain: adequately controlled Airway Patency, RR, SpO2: stable & adequate BP & HR: stable & adequate Hydration State: stable & adequate Anesthetic Complications: no major complications apparent
--- NOTE | 2022-07-04 15:31 | Hospitalist Progress Note ---
Date of Service July 04, 2022 Assessment & Plan (1) Complicated UTI (urinary tract infection): Plan: Patient is a 71 yr female with H/O Type 2 diabetes, dyslipidemia, hypertension, depression and other medical problems listed below who presents with abdominal pain as well as nausea 1 episode of vomiting earlier today was found to have complicated UTI. Complicated UTI -Diagnosed with UTI 3 days ago, has been taking Macrobid but symptoms have worsened --CT abd/pelvis with findings suggestive of cystitis with urothelial thickening and enhancement of left renal pelvis with significant left-sided perinephric stranding favoring a sending infection/pyelonephritis -- Cultures may not be reliable given partial treatment prior to hospitalization --Blood, urine culture pending --Continue Rocephin empirically Hematemesis Likely due to Esophagitis Nonbleeding duodenal ulcers Melena due to above Acute blood loss anemia Diverticulosis --S/P EGD:LA Grade D reflux esophagitis with no bleeding. Medium-sized hiatal hernia. Non-bleeding duodenal ulcers. No specimens collected. --CT ABD:Diverticulosis of the colon and distal small bowel without CT evidence of acute diverticulitis. The esophagus appears circumferentially thick walled. Correlate clinically from some esophagitis. This can be further assessed with endoscopy if clinically warranted. -- Monitor and transfuse PRBCs as needed Appreciate GI input Continue Protonix Hold aspirin for now Needs repeat EGD in 3 months Will advance diet as tolerated (2) Hematemesis: Plan: Management as above (3) Nausea and vomiting: Plan: Likely due to infection Monitor (4) Hyperglycemia: (5) Metabolic acidosis: (6) Diabetes mellitus, type II: Plan: HbA1c 7.9 Monitor BGs Appreciate Glycemic Input Monitor BSG (7) HTN (hypertension): Plan: Continue losartan (8) Dyslipidemia: Plan: Continue statin (9) Depression: Plan: No longer taking Prozac DVT Px: SCDs Re:GI bleed Code status: FULL CODE Admission and Anticipated Discharge Date Admission Date: July 03, 2022 Subjective Patient is seen and examined at bedside No bleeding issues since hospitalization Denies any chest pain, shortness of breath, dizziness, nausea, abdominal pain Had EGD earlier today No other complaints Review of Systems Review of Systems: All systems reviewed & are unremarkable except as noted in Subjective Physical Exam Physical Exam: Physical Exam: Vitals signs as noted above General Appearance:Moderately built and nourished, no apparent distress Head: normocephalic, Atraumatic Eyes: normal inspection, EOMI Neck: supple, Trachea midline Respiratory/Chest: Normal breath sounds, CTA, No accessory muscle use Cardiovascular: S1, S2, No murmur Abdomen/GI:Soft, Non tender, Bowel sounds present Extremities/Musculoskeletal:normal inspection, no edema Neurologic/Psych:AAOX3, grossly no focal neurological deficits Skin: normal color, warm Results & Data Results & Data Vital Signs (Past 12 Hours) Vital Signs Temp Pulse Resp BP BP Pulse Ox O2 Del Method 07/04/22 14:36 36.7 C 62 18 130/76 97 Room Air 07/04/22 14:09 66 20 155/72 H 97 Room Air 07/04/22 13:53 70 20 135/66 97 Room Air 07/04/22 13:38 64 18 123/60 96 Room Air 07/04/22 12:48 37.2 C 64 16 141/69 H 94 Room Air 07/04/22 11:54 36.8 C 68 16 128/69 95 Room Air 07/04/22 08:36 36.7 C 67 16 116/73 98 Room Air
[2022-07-04] MEDS ORDERED: cefTRIAXone SODIUM 2,000 MG in DEXTROSE 5% 50 ML IV SCH (17:00)
[2022-07-04] MEDS: SIMVASTATIN 20 MG TAB PO SCH (20:36)
[2022-07-04] MEDS: PANTOprazole 40 MG in SYRINGE 0 ML IV SCH (20:36)
[2022-07-04] MEDS ORDERED: LANTUS PER UNIT CHARGE SQ SCH (21:00)
--- NOTE | 2022-07-04 21:07 | Electrocardiogram Report ---
Test Reason : Blood Pressure : / mmHG Vent. Rate : 079 BPM Atrial Rate : 079 BPM P-R Int : 152 ms QRS Dur : 082 ms QT Int : 418 ms P-R-T Axes : 053 -42 036 degrees QTc Int : 479 ms Normal sinus rhythm Left axis deviation Anterior infarct , age undetermined Abnormal ECG No previous ECGs available Confirmed by Fred Gilman ([id number]) on 07/04/2022 9:07:12 PM Referred By: Confirmed By:Fred Gilman
[2022-07-05 06:23] LABS: Hematocrit (blood only) 30.5 % (37.0-47.0); Hemoglobin 10.4 g/dl (12.0-16.0); Mean Corpuscular Hgb Conc 34.1 g/dL (32.0-36.0); Mean Platelet Volume 11.6 fL (9.4-12.4); Platelet Count 167 K/uL (130-400); RDW Standard Deviation 40.6 fL (36.4-46.3); Red Blood Count 3.35 M/uL (4.20-5.40)
[2022-07-05 06:25] LABS: BUN Creatinine Ratio 13.9 (10-20); Calcium 7.9 mg/dl (8.6-10.3); Creatinine Clr Calc Pharmacy 80.9 ml/min; Est GFR (Non-African American) 85.4 ml/min; Magnesium 1.7 mg/dl (1.7-2.4); Potassium 3.9 mmol/L (3.5-5.1)
[2022-07-05] MEDS: CALCIUM 600MG + VIT D 400 IU TAB PO SCH (09:00)
[2022-07-05] MEDS: CYANOCOBALAMIN (B-12) 500 MCG TABLET PO SCH (09:00)
[2022-07-05] MEDS: LOSARTAN POTASSIUM 50 MG TAB PO SCH (09:00)
[2022-07-05] MEDS: INSULIN ASPART PER UNIT CHARGE SC SCH ×2 (09:00→12:09)
[2022-07-05] MEDS: PANTOprazole 40 MG in SYRINGE 0 ML IV SCH (09:00)
--- NOTE | 2022-07-05 09:30 | Gastroenterology Progress Note ---
Date of Service July 05, 2022 Assessment & Plan (1) Hematemesis: Plan: Okay with me to go home. Would maintain bid PPI until repeat procedure is done. She sees [facility] so she can follow up with them for follow up procedure in three months if she wants. Admission and Anticipated Discharge Date Admission Date: July 03, 2022 Subjective Feeling well. Eating well. No bleeding. No vomiting/hematemesis Physical Exam Physical Exam: She looks well Results & Data Vital Signs (Past 12 Hours) Vital Signs Temp Pulse Pulse Resp BP Pulse Ox O2 Del Method 07/05/22 07:43 36.7 C 85 16 146/81 H 92 Room Air 07/05/22 03:39 36.6 C 62 19 136/73 96 Room Air 07/04/22 23:24 36.8 C 63 16 145/74 H 95 Room Air 07/04/22 23:08 63
--- NOTE | 2022-07-05 12:23 | Hospitalist Progress Note ---
Date of Service July 05, 2022 Assessment & Plan (1) Complicated UTI (urinary tract infection): Plan: Patient is a 71 yr female with H/O Type 2 diabetes, dyslipidemia, hypertension, depression and other medical problems listed below who presents with abdominal pain as well as nausea 1 episode of vomiting earlier today was found to have complicated UTI. Complicated UTI -Diagnosed with UTI 3 days ago, has been taking Macrobid but symptoms have worsened --CT abd/pelvis with findings suggestive of cystitis with urothelial thickening and enhancement of left renal pelvis with significant left-sided perinephric stranding favoring a sending infection/pyelonephritis -- Cultures may not be reliable given partial treatment prior to hospitalization --Blood Culture: Negative to date --urine culture pending --Continue Rocephin empirically>>Transition to Po Abx to complete the course -- Advised to follow-up with PCP in 1 week upon discharge Hematemesis Likely due to Esophagitis Nonbleeding duodenal ulcers Melena due to above Acute blood loss anemia Diverticulosis --S/P EGD:LA Grade D reflux esophagitis with no bleeding. Medium-sized hiatal hernia. Non-bleeding duodenal ulcers. No specimens collected. --CT ABD:Diverticulosis of the colon and distal small bowel without CT evidence of acute diverticulitis. The esophagus appears circumferentially thick walled. Correlate clinically from some esophagitis. This can be further assessed with endoscopy if clinically warranted. -- Monitor and transfuse PRBCs as needed Appreciate GI input Continue Protonix Ok to resume aspirin per GI: discussed on 07/04/22 Needs repeat EGD in 3 months No recurrence of bleeding issues (2) Hematemesis: Plan: Management as above (3) Nausea and vomiting: Plan: Likely due to infection Monitor (4) Hyperglycemia: (5) Metabolic acidosis: (6) Diabetes mellitus, type II: Plan: HbA1c 7.9 Monitor BGs Appreciate Glycemic Input Monitor BSG (7) HTN (hypertension): Plan: Continue losartan (8) Dyslipidemia: Plan: Continue statin (9) Depression: Plan: No longer taking Prozac DVT Px: SCDs Re:GI bleed Code status: FULL CODE Admission and Anticipated Discharge Date Admission Date: July 03, 2022 Subjective Patient is seen and examined at bedside no recurrence of bleeding Tolerates diet Denies any chest pain, dyspnea, dysuria, hematuria, increased urinary frequency Afebrile today Eager to get discharged Review of Systems Review of Systems: All systems reviewed & are unremarkable except as noted in Subjective Physical Exam Physical Exam: Physical Exam: Vitals signs as noted above General Appearance:Moderately built and nourished, no apparent distress Head: normocephalic, Atraumatic Eyes: normal inspection, EOMI Neck: supple, Trachea midline Respiratory/Chest: Normal breath sounds, CTA, No accessory muscle use Cardiovascular: S1, S2, No murmur Abdomen/GI:Soft, Non tender, Bowel sounds present Extremities/Musculoskeletal:normal inspection, no edema Neurologic/Psych:AAOX3, grossly no focal neurological deficits Skin: normal color, warm Results & Data Results & Data Vital Signs (Past 12 Hours) Vital Signs Temp Pulse Resp BP Pulse Ox O2 Del Method 07/05/22 12:11 36.7 C 72 17 157/78 H 97 Room Air 07/05/22 07:43 36.7 C 85 16 146/81 H 92 Room Air 07/05/22 03:39 36.6 C 62 19 136/73 96 Room Air Laboratory Results Short CBC 07/05/22 Range/Units 05:44 WBC 5.80 (4.8-10.8) K/ul Hgb 10.4 L (12.0-16.0) g/dl Hct 30.5 L (37.0-47.0) % Plt Count 167 (130-400) K/uL BMP 07/05/22 05:44 Sodium 139 Potassium 3.9 Chloride 110 H Carbon Dioxide 24 BUN 10 Creatinine 0.72 Glucose 157 H Calcium 7.9 L
--- NOTE | 2022-07-05 12:33 | Discharge Summary ---
Date of Service July 05, 2022 Admission HPI Per Admitting Provider This is a 71-year-old female with PMH of type 2 diabetes, dyslipidemia, hypertension, depression and other medical problems listed below who presents with abdominal pain as well as nausea 1 episode of vomiting earlier today. Patient has had diffuse abdominal discomfort and generalized weakness for the past week and was seen at [place] [facility] on Thursday and diagnosed with a UTI. Was discharged home on Macrobid. Denies any dysuria but has been having incomplete emptying and frequent urination. Has had nausea all week but that has worsened over the past few days despite antibiotic. Earlier today, patient had 1 episode of dark-colored emesis she states was black as well as 1 episode of black- colored diarrhea. Came into the ER for further evaluation. Has not had a recurrent episode of dark vomit or stool since present in the ED. has abdominal discomfort that has been present all week and describes almost more of a full feeling like she needs to burp and not actual pain. Has had generalized weakness and lightheadedness this week as well. Denies any fever, chills, chest pain, shortness of breath or constipation. No recent medication changes other than the Macrobid antibiotic over the past few days. Has had decreased appetite but states she has been taking Lantus as prescribed. Admission Exam Per Admitting Provider General Appearance:WD/WN, vitals as above, NAD, sitting up in bed, pleasant, conversing easily Head: normocephalic, atraumatic Eyes:normal inspection, PERRL, conjunctivae normal, anicteric sclerae ENT: external ear and nose normal, oropharynx normal Neck: normal visual inspection, trachea midline, no thyromegaly Respiratory:normal respiratory effort, lungs clear to auscultation, no wheeze, rales, rhonchi. No accessory muscle use Cardiovascular: regular rate, rhythm, no murmur, normal peripheral pulses, no BLE edema. Vessels: no JVD Chest: normal inspection of chest Abdomen/GI: normal bowel sounds, soft with mild TTP in epigastrium, no guarding, no hepatosplenomegaly :No flank pain or CVA TTP Extremities/Musculoskeletal: no cyanosis or clubbing, extremities motor strength 5/5 Neurologic: PERRL, EOMI, accommodation nl, no face palsy, no dysarthria, CN's II-XI intact bilaterally and moves all extremities Psychiatric:A+Ox3, euthymic affect Skin: no rashes, normal color, warm/dry Principal Diagnosis Complicated UTI Esophagitis Nonbleeding duodenal ulcers Acute blood loss anemia Diverticulosis GI bleed Discharge Data Allergies Allergy/AdvReac Type Severity Reaction Status Date / Time No Known Allergies Allergy Verified 07/03/22 15:31 Consultations 07/03/22 17:22 ED Decision to Admit Stat 07/03/22 18:31 Consult Gastroenterology Routine Procedures Performed Operation Date: 07/04/22 17:30 Actual Procedures p Esophagogastroduodenoscopy - Shasta Buck Jr, MD Ordered Studies 07/03/22 15:12 CT Abd and Pelvis [CT abd pelvis IV con only] Stat Hospital Course (1) Complicated UTI (urinary tract infection): Patient is a 71 yr female with H/O Type 2 diabetes, dyslipidemia, hypertension, depression and other medical problems listed below who presents with abdominal pain as well as nausea 1 episode of vomiting earlier today was found to have complicated UTI. Complicated UTI -Diagnosed with UTI 3 days ago, has been taking Macrobid but symptoms have worsened --CT abd/pelvis with findings suggestive of cystitis with urothelial thickening and enhancement of left renal pelvis with significant left-sided perinephric stranding favoring a sending infection/pyelonephritis -- Cultures may not be reliable given partial treatment prior to hospitalization --Blood Culture: Negative to date --urine culture pending --Continue Rocephin empirically>>Transition to Po Abx to complete the course -- Advised to follow-up with PCP in 1 week upon discharge Hematemesis Likely due to Esophagitis Nonbleeding duodenal ulcers Melena due to above Acute blood loss anemia Diverticulosis --S/P EGD:LA Grade D reflux esophagitis with no bleeding. Medium-sized hiatal hernia. Non-bleeding duodenal ulcers. No specimens collected. --CT ABD:Diverticulosis of the colon and distal small bowel without CT evidence of acute diverticulitis. The esophagus appears circumferentially thick walled. Correlate clinically from some esophagitis. This can be further assessed with endoscopy if clinically warranted. -- Monitor and transfuse PRBCs as needed Appreciate GI input Continue Protonix Ok to resume aspirin per GI: discussed on 07/04/22 Needs repeat EGD in 3 months No recurrence of bleeding issues (2) Hematemesis: Management as above (3) Nausea and vomiting: Likely due to infection Monitor (4) Hyperglycemia: (5) Metabolic acidosis: (6) Diabetes mellitus, type II: HbA1c 7.9 Monitor BGs Appreciate Glycemic Input Monitor BSG (7) HTN (hypertension): Continue losartan (8) Dyslipidemia: Continue statin (9) Depression: No longer taking Prozac DVT Px: SCDs Re:GI bleed Code status: FULL CODE Total Time Total Time Spent Total Time Spent (In Minutes): 56 minutes Discharge Plan Discharge Items Patient Disposition: Home - Self-Care Reason For Visit: PYELONEPHRITIS, HYPERGLYCEMIAWITH MILD AG Discharge Diagnosis: Complicated UTI Esophagitis Nonbleeding duodenal ulcers Acute blood loss anemia Diverticulosis GI bleed Activity: Per Instructions section Exercise/Sports: Gradually increase as tolerated Non-emergency contact: Primary Care Provider and [employer] Call non-emergency contact if: you have any medication questions, your symptoms worsen, your pain is concerning for you and you have a fever Follow-up/Referrals: Henri Hart MD [Primary Care Provider] - (Date & Time 07/09/2022 11:00 AM Provider Mayito Mohamud MD Department [facility] ) Diet: Carb Consistent or DM2 and Heart Healthy Addtl Attending Provider Instructions: Follow-up with your primary care physician on 07/09/2022 11:00 AM Follow-up with your practice managers Dr. Buck in 3 months for repeat upper endoscopy as advised. --Your blood and urine culture are pending at the time of discharge. Follow-up with your physician for results. --- Complete antibiotic course as prescribed. --- Can resume aspirin if no recurrence of bleeding. Seek immediate medical attention if your symptoms reoccur or worsen Please take all medications as instructed on discharge list below. Please call if you have any questions or problems. You can reach a [facility] hospitalist on duty at [facility] 24 hours a day by calling [phone] Pending Studies at Discharge: Yes Studies:: Blood, Urine Cultures Stand-Alone Forms: My [facility], Smoking Cessation Medications and DC Order Prescriptions: New pantoprazole [Protonix] 40 mg tablet,delayed release (DR/EC) 40 mg PO BID Qty: 60 2RF cefdinir 300 mg capsule 300 mg PO BID Qty: 7 0RF Continued aspirin 81 mg Tablet,Delayed Release (Dr/Ec) 81 mg PO DAILY cyanocobalamin (vitamin B-12) [Vitamin B-12] 500 mcg Tablet 500 mcg PO DAILY simvastatin 20 mg tablet 20 mg PO HS ondansetron 4 mg tablet,disintegrating 4 mg translingual Q8H PRN (Reason: NAUSEA/VOMITING) losartan 100 mg tablet 100 mg PO DAILY insulin aspart U-100 [Novolog FlexPen U-100 Insulin] 100 unit/mL (3 mL) insulin pen 0 sliding scale dose SUBCUT TIDM Calcium 600 + D(3) 600 mg-5 mcg (200 unit) Capsule 1 cap PO DAILY insulin glargine [Basaglar KwikPen U-100 Insulin] 100 unit/mL (3 mL) insulin pen 24 unit SUBCUT HS albuterol sulfate 90 mcg/actuation HFA aerosol inhaler 2 inh INHALATION Q4H PRN (Reason: Shortness Of Breath Or Wheezing) Discontinued nitrofurantoin monohyd/m-cryst 100 mg capsule 100 mg PO BID Rx Instructions: STARTED 07/01/22 FOR 7 DAYS Discharge Orders: Discharge Order (Routine); Ordered 07/05/22 Ordered By: Timmy Mares Admission Data Admit Date/Time: 07/03/22 17:33 Attending Provider: Timmy Mares Admit Provider: Damari Gustafson Primary Care Provider: Henri Hart Other Providers: Damari Gustafson ; Shasta Buck Jr
[2022-07-05] MEDS ORDERED: LANTUS PER UNIT CHARGE SQ SCH (21:00)
== END 2022-07-05 14:30 | disposition home or self-care (01) | DRG 369 ==
LOC: ED 11:26 → EDINP 17:33 → SUATTDRO 17:33 → 2S 21:18